=== PATIENT | male | born 1995 | race Caucasian/White ===

== ENCOUNTER 2019-03-27 01:40 | Emergency (ER) | payer OTHER ==
[~2019-03-27] VITALS: Ht 180.3 cm; Wt 89.8 kg
[~2019-03-27 01:40] MED LIST: CEPH-443 PO; IBUP800T48 PO
[2019-03-27 01:52] VITALS: Ht 180.3 cm; Wt 89.8 kg
[2019-03-27] MEDS ORDERED: ONDANSETRON (ODT) 4 MG TAB ODT STA (02:16)
[2019-03-27] MEDS ORDERED: DIPHTH/TET/ACEL PERTUSS (ADULT) 0.5 ML VIAL IM* ONE (02:30)
[2019-03-27] MEDS ORDERED: HYDROCODONE/APAP (10/325) TAB PO ONE (02:30)
[2019-03-27] MEDS ORDERED: BACITRACIN 0.5%/ZINC 28.35 GM OINT TOP ONE ×2 (02:30)
[2019-03-27] MEDS ORDERED: ACETAMINOPHEN 325 MG TAB PO ONE (03:00)
[2019-03-27] MEDS ORDERED: LIDOCAINE 1% (MDV) 20 ML INJ SC ONE (03:30)
[2019-03-27 03:55] VITALS: BP 130/82; PULSE 69; RESP 18
== END 2019-03-27 03:15 | disposition home or self-care (01) ==
LOC: FTE 01:40
DX: S01.01XA Laceration without foreign body of scalp, initial encounter (principal); W20.8XXA Other cause of strike by thrown, projected or falling object, initial encounter; Y92.89 Other specified places as the place of occurrence of the external cause
CPT/HCPCS: 70450; 90471; 90715